=== PATIENT | male | born 1970 | race Caucasian/White ===

== ENCOUNTER 2017-11-06 09:45 | Emergency (ER) | payer OTHER ==
--- NOTE | 2017-11-06 22:53 | XR ---
EXAMINATION TYPE: XR ribs LT w pa chest xray DATE OF EXAM: 11/06/2017 COMPARISON: NONE HISTORY: Left posterior rib pain, fall TECHNIQUE: 2 views left RIBS. Exam is supplemented with a frontal chest. FINDINGS: No pneumothorax is evident. No displaced rib fractures are evident. IMPRESSION: 1. Normal left ribs
--- NOTE | 2017-11-09 00:40 | CDI ---
Documentation Clarification OP Dear Maurisio STORM PA-C, Please do addendum of ED physician Document. Thank you, Maia Gunter Traffic Rate Analyst If you have any question, Please contact certified coding specialist at [phone] [facility]
== END 2017-11-06 12:25 | disposition home or self-care (01) ==
LOC: EC 09:45
DX: S20.212A Contusion of left front wall of thorax, initial encounter (principal); F17.200 Nicotine dependence, unspecified, uncomplicated; W01.0XXA Fall on same level from slipping, tripping and stumbling without subsequent striking against object, initial encounter; Y92.009 Unspecified place in unspecified non-institutional (private) residence as the place of occurrence of the external cause
CPT/HCPCS: 99283

== ENCOUNTER → 2018-01-27 | Outpatient (CLI) | payer OTHER ==
--- NOTE | 2018-01-27 16:44 | US ---
EXAMINATION TYPE: US venous doppler duplex UE LT DATE OF EXAM: 01/27/2018 COMPARISON: NONE CLINICAL HISTORY: M25.512 Pain in left shoulder, M79.89. SIDE PERFORMED: left left arm pain and swelling. Left Arm: Negative for DVT Superficial venous structures also imaged during this examination appear unremarkable. IMPRESSION: 1. Left upper extremities negative for deep venous thrombosis. 2. No etiology for swelling is identified.
== END | disposition home or self-care (01) ==
LOC: RADUSWWP 15:57
PROVIDERS: ATTEND Family Medicine
DX: M25.512 Pain in left shoulder (principal); M25.522 Pain in left elbow; M79.89 Other specified soft tissue disorders

== ENCOUNTER → 2018-02-22 | Outpatient (CLI) | payer OTHER ==
--- NOTE | 2018-02-22 12:41 | CT ---
EXAMINATION TYPE: CT brain wo con DATE OF EXAM: 02/22/2018 COMPARISON: Prior head CT dated 08/03/2016 HISTORY: Acute intractable headache CT DLP: 1118 mGycm. Automated Exposure Control for Dose Reduction was Utilized. TECHNIQUE: CT scan of the head is performed without contrast. FINDINGS: There is no acute intracranial hemorrhage, mass effect, or midline shift identified. The ventricles and sulci are within normal limits in size. The globes are intact and the visualized sin uses are clear. Postop change noted to the zygoma on the left IMPRESSION: No acute intracranial hemorrhage, mass effect, or midline shift is seen.
== END | disposition home or self-care (01) ==
LOC: RADCTMAIN 12:05
PROVIDERS: ATTEND Family Medicine
DX: R51 Headache (principal); H47.092 Other disorders of optic nerve, not elsewhere classified, left eye; Z98.890 Other specified postprocedural states
CPT/HCPCS: 70450